=== PATIENT | female | born 1960 | race Caucasian/White ===

== ENCOUNTER → 2017-01-19 | Outpatient (CLI) | payer OTHER ==
[~2017-01-19] MED LIST: ALEVE220 M1 PO; AMBIEN PO; AMBIEN10 MG PO; ASPIRIN PO; BACTRIM DS TABL1 TA1 PO; EFFEXOR PO; LORTAB 7.5-5001 TAB PO; NECON; NECON PO; NEXIUM PO; NITROGYLCERIN SUBLINGUAL; PERCOCET 5-3251 TAB PO; PEXEVA; TEMAZEPAM; TOPROL XL PO; TYLOX 5/500 CAP1 CAP PO; VICODIN 5/500 T1 TAB PO; VISTARIL PO; VITAL-D RX TABL1 TAB PO; WELLBUTRIN
--- NOTE | ~2017-01-19 | CT3 ---
[facility] Service of [facility] & [facility] RADIOLOGY TEXT RESULTS PATIENT: TIFFANY LYNCH LOCATION: [facility] : 58 UNIT #: [id number] AGE: [address]: Bayron Delgado MD SEX: F ORDER DR: [id number] [facility] [address] [place], [place] [address] [id number] O MR#: [id number] Acc #: [id number] NAME: TIFFANY LYNCH : 1960 SEX: F STUDY DATE/TIME: 01/19/2017 13:22 [facility]: STUDY DESCRIPTION: CT Abd and Pelv WWo Cont Attending Physician: Bayron Delgado M.D. Referring Physician: Bayron Delgado M.D. Ordering Physician: Bayron Delgado M.D. Primary Care Physician: Fausto Tompkins M.D. MEDICAL IMAGING REPORT This report is preliminary unless electronic signature is present EXAM CT of the abdomen and pelvis without and with contrast media HISTORY History of renal cell carcinoma left kidney, yearly follow up. TECHNIQUE Axial imaging of the abdomen was initially performed without contrast media. Abdomen and pelvis was initially performed without contrast media. The patient was then administered an IV bolus of contrast and scanned in the arterial and venous phases. The exam is compared directly to the previous scan of 06/30/16. This CT exam was performed with one or more of the following radiation dose reduction techniques: Automatic exposure control, adjustment of mA and/or kV according to patient size, and iterative reconstruction. FINDINGS Scans through the lung bases show a calcified granuloma in the right base. Liver, gallbladder, and spleen are normal. Postsurgical changes at the EG junction and the anterior abdominal wall are unchanged. Adrenal glands and pancreas are normal. The patient has had a left nephrectomy. The right kidney is normal on the precontrast images. No pelvic masses or fluid collections are identified. Patient was subsequently administered IV contrast. There is an accessory lower-pole right renal artery, both the main and right renal arteries appear widely patent, there is normal blood flow to the remaining right kidney. Delayed images show no evidence of a right renal mass. There is no evidence of lymphadenopathy. Enhancement pattern in the liver is normal, as is the spleen. Delayed images show no obvious filling defects in the collecting system of the right kidney or proximal right ureter. [facility] A Service of [facility] RADIOLOGY TEXT RESULTS PATIENT: TIFFANY LYNCH LOCATION: [facility] : 58 UNIT #: [id number] AGE: [address]: Bayron Delgado MD SEX: F ORDER DR: CONCLUSION 1. Postop changes of left nephrectomy. 2. Normal right kidney. 3. Postop changes at the EG junction as well as postop changes of mesh anterior wall hernia repair. No evidence of tumor recurrence in the abdomen or pelvis. Dictated by... David Mejia M.D. THIS IS AN ELECTRONICALLY VERIFIED REPORT David Mejia M.D. at 01/25/2017 7:15 AM FRANDY/kenton TD: 01/21/2017 20:07 JOB #: [id number] MEDICAL IMAGING REPORT Page 1 of 1 COPY
--- NOTE | ~2017-01-19 | CR63 ---
[facility] A Service of [facility] & [facility] RADIOLOGY TEXT RESULTS PATIENT: TIFFANY LYNCH LOCATION: [facility] : 58 UNIT #: [id number] AGE: [address]: Bayron Delgado MD SEX: F ORDER DR: [id number] [place] [id number] [facility]. [place], [place] [address] [id number] O MR#: [id number] Acc #: [id number] NAME: TIFFANY LYNCH : 1960 SEX: F STUDY DATE/TIME: 01/19/2017 11:47 UNIT: [facility] ROOM: STUDY DESCRIPTION: CR Chest 2 View Attending Physician: Bayron Delgado M.D. Referring Physician: Bayron Delgado M.D. Ordering Physician: Bayron Delgado M.D. Primary Care Physician: Fausto Tompkins M.D. MEDICAL IMAGING REPORT This report is preliminary unless electronic signature is present EXAM Chest 01/19/2017 HISTORY 56-year-old woman with history of renal cell carcinoma. Followup. Short of air. COMPARISON Chest 01/21/2016. FINDINGS Two-view chest demonstrates a large body habitus. Cardiac size and configuration are normal and stable. Hilar structures and mediastinal contours are preserved. Small calcified granuloma right lung base laterally. No other pulmonary nodules identified. Costophrenic angles are preserved. IMPRESSION Stable chest with no interim change and no acute finding. Dictated by... Michael Card M.D. THIS IS AN ELECTRONICALLY VERIFIED REPORT Michael Card M.D. at 01/19/2017 2:20 PM LEESA/vannessa TD: 01/19/2017 14:02 JOB #: [id number] MEDICAL IMAGING REPORT [facility] A Service of [facility] & [facility] RADIOLOGY TEXT RESULTS PATIENT: TIFFANY LYNCH LOCATION: [facility] : 58 UNIT #: [id number] AGE: [address]: Bayron Delgado MD SEX: F ORDER DR: Page 1 of 1 COPY
[2017-01-19 11:51] LABS: HEMATOCRIT 43.6 % (35.0-45.0); MEAN CELL VOLUME 93.7 FL (83-96); MEAN PLATELET VOLUME 8.4 FL (6.5-11.5); RED BLOOD COUNT 4.66 X10e (3.90-5.30); WHITE BLOOD COUNT 9.9 X10e3 (4.0-10.5)
[2017-01-19 12:48] LABS: ALBUMIN SERUM 3.9 g/dL (3.5-5.0); BILIRUBIN,TOTAL 0.7 mg/dL (0.2-2.0); BUN/CREATININE RATIO 18.18; CREATININE SERUM 1.1 mg/dL (0.6-1.4); GLOM FILT RATE Estimated 55.7 mL/min (>60); POTASSIUM 4.2 mmol/L (3.5-5.1); PROTEIN TOTAL SERUM 6.9 g/dL (6.0-8.3)
== END | disposition home or self-care (01) ==
LOC: CCAT 11:26 → CRAD 11:26 → CCAT 13:40
PROVIDERS: Urology
DX: Z08 Encounter for follow-up examination after completed treatment for malignant neoplasm (principal); Z85.528 Personal history of other malignant neoplasm of kidney; Z90.5 Acquired absence of kidney; Z98.890 Other specified postprocedural states
CPT/HCPCS: 36415; 71020; 74178; 80053; 85027; Q9967

== ENCOUNTER → 2017-04-19 | Outpatient (CLI) | payer OTHER ==
--- NOTE | ~2017-04-19 | US85 ---
[facility] A Service of [facility] & [facility] RADIOLOGY TEXT RESULTS PATIENT: TIFFANY LYNCH LOCATION: [facility] : 58 UNIT #: [id number] AGE: [address]: Fausto Tompkins MD SEX: F ORDER DR: [id number] [facility] [address] [place], [place] [address] [id number] O MR#: [id number] Acc #: [id number] NAME: TIFFANY LYNCH : 1960 SEX: F STUDY DATE/TIME: 04/19/2017 14:45 UNIT: [facility] ROOM: STUDY DESCRIPTION: [facility] [employer] [facility] Attending Physician: Fausto Tompkins M.D. Ordering Physician: Fausto Tompkins M.D. Primary Care Physician: Fausto Tompkins M.D. MEDICAL IMAGING REPORT This report is preliminary unless electronic signature is present EXAM Right lower extremity venous duplex ultrasound, 04/19/2017. HISTORY 56-year-old female with right lower extremity pain for 3 weeks. COMPARISON None available. FINDINGS Real time clayton-scale, color Doppler, and spectral Doppler analysis of the right lower extremity deep venous system demonstrates normal venous waveforms with normal compressibility and augmentation throughout. No evidence of right lower extremity deep venous thrombosis. IMPRESSION Negative for right lower extremity DVT. Dictated by... Santiago Schaefer M.D. THIS IS AN ELECTRONICALLY VERIFIED REPORT Santiago Schaefer M.D. at 04/20/2017 8:07 AM VANITA/verónica TD: 04/20/2017 04:46 JOB #: [id number] MEDICAL IMAGING REPORT Page 1 of 1 COPY
== END | disposition home or self-care (01) ==
LOC: CNIV 14:17
DX: M79.604 Pain in right leg (principal)
CPT/HCPCS: 93971